=== PATIENT | male | born 1985 | race Caucasian/White ===

== ENCOUNTER 2017-12-30 17:50 | Inpatient (IN) | payer OTHER ==
[~2017-12-30] VITALS: Ht 188 cm; Wt 120.5 kg
--- NOTE | ~2017-12-30 | HP ---
PATIENT: FAYE ROQUE MEDICAL RECORD: [id number] ACCOUNT: [id number] LOCATION:D.MS [facility] : 85 ADMISSION DATE: 12/30/17 PCP: SUE RIOS MD HISTORY AND PHYSICAL EXAMINATION REASON FOR ADMISSION: Fever of unknown origin, headache. HISTORY OF PRESENT ILLNESS: The patient is a 32-year-old male who, on 12/13/2017, developed some occipital-type headache and fever. He felt fatigued and thought he might have a sinus infection, but had no sinus symptomatology. He took Aleve or Advil to help with his symptoms and came in to my office on 12/18/2017 complaining of low-grade temperature as high as 99-100; fatigue; headache of 5 out of 10, Advil helping. He denied any migrainous symptoms though he has had migraines in the past. He denied any nuchal rigidity. He had had some mosquito bites but no tick bites. At that time, I found him to be afebrile with a supple neck on exam. He was treated with Soma at bedtime and Aleve as I suspected he had viral etiology of his symptoms. If no improvement, to return. He continued to have fever waxing and waning with night sweats occurring after one week. Initial lab work showed normal CBC, Gaurav-Luong virus, GHB, and UA. He continued to have symptoms with headache and night sweats that he was wetting the bed down. He denied any cough, abdominal pain, dysuria, diarrhea, or vomiting. As a result, more labs were drawn including tick titers showing negative IgG and IgM for E. chaffeensis. HGE IgG and IgM negative. Lyme titer did not have significant blood to send. [place] titer has negative IgG and IgM. [place] spotted positive at 1:64 IgG with an IgM of 0.62, in the normal range. Negative urine culture. His Lyme antibody titer was resent and that is currently pending. He continued to have fever over the weekend with 101 fever, now he is 18 days out. The patient is being admitted for evaluation for fever of known origin and for ID consultation. The patient was started empirically on Vibramycin 100 mg b.i.d. five days ago without improvement in his symptoms. He said his headache is about 3 to 5 out of 10, worse when he is having fever. No myalgias. No rash. PAST MEDICAL HISTORY: History of migraine headaches, tonsillar abscess post-tonsillectomy, history of benign colon polyp, and history of sinusitis that is seasonal. PAST SURGICAL HISTORY: Tonsillectomy and colonoscopy in 2012. FAMILY HISTORY: Father, at 63, had 3-vessel CABG and has had PTCA as well. Hyperlipidemia and hypertension. Mother is alcoholic. Siblings are well. SOCIAL HISTORY: He is a nonsmoker. Rare drinker. He is . He is an RN, works at [employer]. He is and has an child. HOME MEDICATIONS: Vibramycin 100 mg p.o. b.i.d. started on December 23, Maxalt-DOG CATCHER 5 mg p.r.n. headache, multivitamin one daily, aspirin 81 mg a day, and Flonase nasal spray two nasal sprays each nostril daily. DRUG ALLERGIES: None mentioned. REVIEW OF SYSTEMS: GENERAL: Fever of 101 cyclically with night sweats for the last 18 days. He has had malaise and fair appetite. HEENT: He has had occipital headache off and on, worse with his fever. No HISTORY AND PHYSICAL [id number] FAYE ROQUE A visual change, sinus congestion, sore throat, or hearing difficulty. RESPIRATORY: No severe cough or chest pain. CARDIAC: No exertional chest pain, claudication, or edema. GASTROINTESTINAL: He has had poor appetite. No nausea. He has had one loose stool yesterday. Denies gallbladder symptoms or fatty food intolerance. No history of hepatitis. ENDOCRINE: Denies polyuria, polydipsia, heat or cold intolerance. INTEGUMENTARY: No rash or itching. PSYCHIATRIC: Denies depressed mood. MUSCULOSKELETAL: He has generalized arthralgias when he is having fever and these have resolved. PHYSICAL EXAMINATION: VITAL SIGNS: Temperature is 99.8 degrees Fahrenheit and blood pressure 130/84. Weight is 263 pounds, height is 73 inches, BMI of 34.7. Heart rate 90. GENERAL: The patient appears alert and mildly ill. He is oriented. HEENT: Normocephalic. Eyes are clear. Pupils are reactive. Palpebral conjunctivae are pink. No scleral icterus is noted. NECK: Supple with good range of motion. No crepitus. No pain elicited. Scalp shows no lesions. HEART: Regular rate without MGR. PMI appropriate. LUNGS: Clear without wheezes or rales. ABDOMEN: Soft and nontender. No organomegaly or flank pain. Bowel sounds are active. GENITOURINARY: Deferred. EXTREMITIES: No CC&E. NEUROLOGIC: Oriented to person, place, and time. Cranial nerves are intact. Gait is normal. LABORATORY DATA: Admission labs are currently pending. ASSESSMENT: 1. Fever of unknown origin. 2. Positive [place] titer 1:64, on doxycycline without improvement of symptoms. 3. History of migraine headaches. 4. Occipital headache, etiology unknown. PLAN: The patient has been admitted for urine and blood cultures. Continue doxycycline, will switch to IV antibiotics. CT of brain without contrast. Viral cultures. ID consult. TRANSINT:[id number] Voice Confirmation ID: [id number] DOCUMENT ID: [id number] SUE RIOS MD at 1302 CC: [id number] DICTATION DATE: 12/30/17 1734 MERCHANDISE COLLECTOR: 12/30/17 1815 ADM IN [place] [id number] [place] [id number]
--- NOTE | ~2017-12-30 | EC ---
PATIENT:FAYE ROQUE DATE OF SERVICE: 12/30/17 SEX: M MEDICAL RECORD: [id number] DATE OF : 85 LOCATION:D.MS [facility]221 AGE OF PATIENT: 32 ADMISSION DATE: 12/30/17 REFERRING PHYSICIAN: INTERPRETING PHYSICIAN: CORAZON JETT MD ECHOCARDIOGRAM REPORT ECHO CHARGES 4 ECHO COMPLETE Date: 12/31/17 CLINICAL DIAGNOSIS: FUO(FEVER)/TACHYCARDIA ECHOCARDIOGRAPHIC MEASUREMENTS (adult normal given) AC root (d.<3.7cm) 3.1 cm LV Septum d (<1.2 cm> 1.2 cm Valve Excursion 1.3 cm LV Septum (systole) 1.4 cm Left Atria (s.<4.0cm> 3.6 cm LVPW d(<1.2cm) 0.8 cm RV (d.<2.3cm) 3.0 cm LVPW (sytole) 1.5 cm LV diastole(<5.6CM) 5.3 cm MV E-F(>70mm/sec) cm LV systole 4.2 cm LVOT Diameter 1.9 cm MV exc.(>10mm) cm Est.ejection fraction (50-75%) % DOPPLER: LVIT cm/sec A 59 cm/sec E 76 cm/sec LA cm/sec RVSP 18.6 mmHg LVOT 137 cm/sec AOP1/2T m/s Asc. Ao 172 cm/sec RVOT 101 cm/sec RA cm/sec PA 89 cm/sec AV Gradient Peak 11.9 mmHg AV Mean 6.3 mmHg AV Area 2.2 cm MV Gradient Peak 3.6 mmHg MV Mean 2.2 mmHg MV Area cm COMMENTS: Oleo Hasher And Renderer: Linda SPRINGER Operator Bearer Systems: Lenin Cruz TAPE# PACS Pericardial Effusion N DATE OF SERVICE: 12/31/2017 DATE OF SERVICE: 12/31/2017 FINDINGS: 1. Left ventricular chamber size is within normal limits. Left ventricular systolic function is normal. Overall ejection fraction estimated at 60%. 2. Left atrium is within normal limits at 3.8 cm. Right atrium and right ventricular chamber sizes are mildly dilated. 3. Valvular structures have normal structure and motion. ECHOCARDIOGRAM REPORT [id number] FAYE ROQUE 4. Doppler interrogation reveals no significant valvular insufficiency or stenosis. Pulmonary systolic pressure is normal estimated at 19 mmHg. 5. No evidence of pericardial effusion or left ventricular thrombus. TRANSINT: Voice Confirmation ID: [id number] DOCUMENT ID: [id number] CORAZON JETT MD at 1729 CC: [id number] DICTATION DATE: 12/31/17 1242 OPEN HEARTH FURNACE LABORER: 12/31/17 1617 ADM IN [place] [id number] [place] [address]
--- NOTE | ~2017-12-30 | HEMODYNAMI ---
PATIENT:FAYE ROQUE MEDICAL RECORD: [id number] : 85 LOCATION:Jaron.[id number] ADMISSION DATE: 12/30/17 Generatedon:01/01/20189:35 Patient name: FAYE ROQUE Patient #: [id number] SSN: : 1985 Date of study: 01/01/2018 Page: Of Hemodynamic Procedure Report Patient Data Patient Demographics Procedure consent was obtained First Name: FAYE Gender: Male Last Name: JUDE : 1985 Middle Initial: JANEE Cadena Age: 32 year(s) Patient #: [id number] Race: Unknown Additional ID: [id number] Contact details Address: [address] [place] [address] State: [place] City: [place] Zip code: [address] Past Medical History Allergies: No known allergies Admission Admission Data Admission Date: 12/30/2017 Admission Time: 17:50 Room #: D.2217 Procedure Procedure Types Cath Procedure Peripheral Cath Diagnostic Procedure Miscellaneous Lumbar Puncture Procedure Description Procedure Date Procedure Date: 01/01/2018 Procedure Start Time: 9:20 Procedure Staff Name Function Mendez Liao MD Performing Physician Fernando Nelson RT Monitor Merry Kearney RN Nurse Procedure Data Cath Procedure Fluoroscopy Diagnostic fluoroscopy Total fluoroscopy dose: 2 dose: 2 mGy mGy Hemodynamics Rest Pre Cath Intra NCS Post Cath Procedure Log Time Note 8:46:23 Fernando Nelson RT (R) (CV) sent for patient. Start room use. 8:47:11 Time tracking: Regular hours (M-F 7:00 - 5:00) 8:47:18 Patient received from Med/Surg to IR Alert and oriented. Tansferred to table in Prone position. 8:47:19 Correct patient and procedure confirmed by team. 8:47:22 Signed procedure consent form obtained from patient. 8:48:19 Patient allergic to No known allergies 8:48:55 Is patient on blood thinner?No 9:09:19 Lumbar area was prepped with betadine and draped in sterile fashion 9:19:52 Physician arrived 9:19:53 --------ALL STOP TIME OUT------ 9:19:54 Final Timeout: patient, procedure, and site verified with staff and physician. All members of the team are in agreement. 9:19:58 Lumbar site verified by team. 9:20:03 Sedation plan: Local Anesthetic Medication:Lidocaine 9:20:14 Procedure started. 9:20:14 Full Disclosure recording started 9:20:22 Local anesthetic to Lumbar area with Lidocaine 1% by Mendez Liao MD.INITIAL ACCESS ONLY 9:32:36 Procedure ended.(Physican Out) 9:33:00 Fluoroscopy dose: 2 mGy 9:33:00 Flurop Dose total: 2 9:33:02 Sharps counted by scrub and verified by R.N. 9:33:50 bandaide applied to lumbar area .lumbar area stable 9:33:54 Patient transfered to Med/Surg with Bed. Signature Audit [place] Stage Time Signature Unsigned Intra-Procedure 01/01/2018 Fernando 9:35:46 AM Omar EVANS (R) (CV) Signatures Monitor : Fernando Signature : Omar RT Date : Time : [facility] [address] [place] [id number]
[~2017-12-30 17:50] MED LIST: CIPRO500 MG PO; FLAGYL500 MG PO; TESTOSTERONE; ULTRAM50 MG
[2017-12-30] MEDS ORDERED: MULTI-DAY VITAM1 TAB PO (18:31)
[2017-12-30] MEDS ORDERED: BAYER CHEWABLE81 MG PO (18:31)
[2017-12-30] MEDS ORDERED: FLUTICASONE PRO16 GM NASAL (18:32)
[2017-12-30] MEDS ORDERED: CLARITIN 10 MG10 MG PO (18:32)
[2017-12-30 21:01] VITALS: BP 123/82
[2017-12-30 22:23] LABS: APPEARANCE CLEAR (CLEAR); BILIRUBIN NEGATIVE (NEGATIVE); COLOR YELLOW (YELLOW); GLUCOSE NEGATIVE (NEGATIVE); KETONE NEGATIVE (NEGATIVE); NITRITE NEGATIVE (NEGATIVE); PROTEIN NEGATIVE (NEGATIVE); SPECIFIC GRAVITY 1.015 (1.005-1.020); UROBILINOGEN NORMAL (NORMAL)
[2017-12-31 00:48] VITALS: BP 123/82; BMI 33.8
[2017-12-31 04:57] VITALS: BP 122/62
[2017-12-31 06:24] LABS: BASOPHILS 0.7 % (0-2); EOSINOPHILS 3.7 % (0-7); HEMATOCRIT 40.8 % (42.0-54.0); HEMOGLOBIN 13.9 g/dL (13.5-17.5); IMMATURE GRANULOCYTES 0.2 % (0-5); LYMPHOCYTES 49.8 % (15-50); MCH 29.5 pg (26.0-34.0); MCHC 34.1 g/dL (31.0-37.0); MCV 86.6 fL (80.0-100.0); MEAN PLATELET VOLUME 9.7 fL (7.4-10.4); MONOCYTES 12.5 % (2-11); NEUTROPHILS 33.1 % (40-80); RBC 4.71 10x6/uL (4.20-6.10); RDW 12.8 % (11.5-14.5); WBC 5.7 10x3/uL (4.8-10.8)
[2017-12-31 06:40] LABS: PLATELET COUNT 169 10x3/uL (130-400)
[2017-12-31 06:45] LABS: ALKALINE PHOSPHATASE 77 U/L (46-116); ALT (SGPT) 57 U/L (10-68); BILIRUBIN - DIRECT 0.11 mg/dL (0.00-0.30); BILIRUBIN - INDIRECT 0.45 mg/dL (0.00-1.00); BILIRUBIN - TOTAL 0.56 mg/dL (0.2-1.3); CALC OSMOLALITY 277 mosm/kg (275-300); CALCIUM 8.5 mg/dL (8.5-10.1); CHLORIDE - SERUM 103 mmol/L (98-107); GLUCOSE 110 mg/dL (74-106); POTASSIUM - SERUM 3.8 mmol/L (3.5-5.1); PROTEIN - SERUM 6.8 g/dL (6.4-8.2); SODIUM 139 mmol/L (136-145); UREA NITROGEN 11 mg/dL (7-18); eGFR NON AFRICAN AMERICAN > 90 mL/min (90-120)
[2017-12-31 08:05] VITALS: BP 129/78
[2017-12-31 13:18] VITALS: Ht 188 cm; Wt 120.5 kg
[2017-12-31 13:21] VITALS: BP 136/71
[2017-12-31 15:53] VITALS: BP 126/75
[2017-12-31 21:10] VITALS: BP 131/71
[2018-01-01 05:00] VITALS: BP 128/67
[2018-01-01 05:09] LABS: HEMATOCRIT 41.1 % (42.0-54.0); HEMOGLOBIN 13.9 g/dL (13.5-17.5); MCH 29.2 pg (26.0-34.0); MCHC 33.8 g/dL (31.0-37.0); MCV 86.3 fL (80.0-100.0); MEAN PLATELET VOLUME 9.3 fL (7.4-10.4); PLATELET COUNT 154 10x3/uL (130-400); RBC 4.76 10x6/uL (4.20-6.10); RDW 12.9 % (11.5-14.5); WBC 5.2 10x3/uL (4.8-10.8)
[2018-01-01 05:41] LABS: ALBUMIN 2.9 g/dL (3.4-5.0); ALKALINE PHOSPHATASE 76 U/L (46-116); ALT (SGPT) 61 U/L (10-68); CALC OSMOLALITY 276 mosm/kg (275-300); CALCIUM 8.3 mg/dL (8.5-10.1); CARBON DIOXIDE 29.2 mmol/L (21.0-32.0); CHLORIDE - SERUM 104 mmol/L (98-107); CREATININE - SERUM 1.1 mg/dL (0.6-1.3); GLUCOSE 108 mg/dL (74-106); POTASSIUM - SERUM 3.8 mmol/L (3.5-5.1); PROTEIN - SERUM 6.7 g/dL (6.4-8.2); SODIUM 139 mmol/L (136-145); eGFR NON AFRICAN AMERICAN 82 mL/min (90-120)
[2018-01-01 05:48] LABS: HIV 1 & 2- RAPID SCREEN NEGATIVE (NEGATIVE)
[2018-01-01 05:50] LABS: UREA NITROGEN 8 mg/dL (7-18)
[2018-01-01 06:16] LABS: EOSINOPHILS 6 % (0-7); LYMPHOCYTES 24 % (15-50); MONOCYTES 2 % (2-11); NEUTROPHILS 36 % (40-80); PLATELET ESTIMATE NORMAL; PLATELET MORPHOLOGY NORMAL PLT MORPH
[2018-01-01 06:44] LABS: ERYTHROCYTE SEDIMENTATION RATE 6 mm/hr (0-15)
[2018-01-01 08:40] VITALS: BP 132/64
[2018-01-01 10:07] LABS: GLUCOSE - CSF 57 MG/DL (40-75); PROTEIN - CSF 63 MG/DL (12-60)
[2018-01-01 10:30] LABS: APPEARANCE - CSF CLEAR
[2018-01-01 10:31] LABS: RBC - CSF 11 cmm (0-0)
[2018-01-01 11:40] VITALS: BP 125/70
[2018-01-01 16:11] VITALS: BP 126/67
[2018-01-01 21:11] VITALS: BP 140/76
[2018-01-02 06:26] VITALS: BP 151/82
[2018-01-02 09:58] VITALS: BP 130/71
[2018-01-02 12:44] VITALS: BP 126/68
[2018-01-02 16:23] LABS: HEP B CORE AB TOTAL Negative (Negative); HEPATITIS C ANTIBODY <0.1 (0.0-0.9)
[2018-01-02] MEDS ORDERED: VIBRAMYCIN 100100 MG PO (16:34)
[2018-01-03 10:23] LABS: LYME WB - IGG P18 AB Absent (()); LYME WB - IGG P23 AB Absent (()); LYME WB - IGG P28 AB Absent (()); LYME WB - IGG P30 AB Absent (()); LYME WB - IGG P39 AB Absent (()); LYME WB - IGG P41 AB Present (()); LYME WB - IGG P45 AB Absent (()); LYME WB - IGG P58 AB Absent (()); LYME WB - IGG P66 AB Absent (()); LYME WB - IGG P93 AB Absent (()); LYME WB - IGG WB INTERP Negative (()); LYME WB - IGM P23 AB Present (()); LYME WB - IGM P39 AB Absent (()); LYME WB - IGM P41 AB Present (()); LYME WB - IGM WB INTERP Positive (())
[2018-01-03 15:25] LABS: BARTONELLA - HENSELAE IGG Negative titer (Neg:<1:320); BARTONELLA - HENSELAE IGM Negative titer (Neg:<1:100); BARTONELLA - QUINTANA IGG Negative titer (Neg:<1:320); BARTONELLA - QUINTANA IGM Negative titer (Neg:<1:100)
[2018-01-06 13:12] LABS: F. TULARENSIS - IGG Negative (()); F. TULARENSIS - IGM Negative (())
[2018-01-08 14:15] LABS: ENTEROVIRUS RT-PCR Negative (Negative)
[2018-01-10 08:19] LABS: VIRAL - RESULT No virus isolated. (())
== END 2018-01-02 17:09 | disposition home or self-care (01) | DRG 869 ==
LOC: D.MS 17:50
PROVIDERS: Family Medicine; Specialist; Student in an Organized Health Care Education/Training Program
PROC: B01B1ZZ Fluoroscopy of Spinal Cord using Low Osmolar Contrast (ICD-10-PCS; 2018-01-01)
PROC: 009U3ZX Drainage of Spinal Canal, Percutaneous Approach, Diagnostic (ICD-10-PCS; principal; 2018-01-01 08:30)
DX: A69.20 Lyme disease, unspecified (principal); R50.9 Fever, unspecified; D72.820 Lymphocytosis (symptomatic); R74.0 Nonspecific elevation of levels of transaminase and lactic acid dehydrogenase [LDH]